=== PATIENT | female | born 1985 | race Caucasian/White ===

== ENCOUNTER → 2016-12-10 | Outpatient (CLI) | payer OTHER ==
[~2016-12-10] MED LIST: IBUP-1773 PO; PNV11TAB PO
--- NOTE | 2016-12-10 11:31 | Diagnostic Imaging Report ---
First trimester OB ultrasound. INDICATION: Dating. FINDINGS: There is a normal-appearing single intrauterine . An embryo is seen with cardiac activity at 163 beats per minute. The crown-rump length is at 11 weeks and 2 days. CORTES is 06/29/17. The ovaries are obscured by bowel gas. IMPRESSION: Live single intrauterine . Dictated by: Dictated on workstation # [id number]
== END ==
LOC: RAD 10:15
PROVIDERS: ATTEND Family Medicine
DX: Z34.91 Encounter for supervision of normal pregnancy, unspecified, first trimester (principal)
CPT/HCPCS: 76801

== ENCOUNTER → 2017-02-11 | Outpatient (CLI) | payer OTHER ==
--- NOTE | 2017-02-11 14:21 | Diagnostic Imaging Report ---
INDICATION: survey. TECHNIQUE: Multiple real-time grayscale images were obtained over the gravid uterus. COMPARISON: None. FINDINGS: Single live intrauterine fetus transverse with head to the maternal right. Amniotic fluid index is normal. Placenta is anterior and not low. heart rate of 136 beats per minute. There is a three-vessel cord. anatomical survey appears normal with the exception of incomplete visualization of the cervical spine. Biometrical measurements are as follows: Biparietal 4.4 cm, age 19 weeks 3 days. Head circumference 16.9 cm, age 19 weeks 4 days. Abdominal circumference 13.8 cm, age 19 weeks 2 days. Femur length 3.1 cm, age 19 weeks 6 days. Sonographic estimate age: 19 weeks 4 days. Sonographic estimated date of delivery: 06/29/17. Estimated Weight: 294 gm (+/- 43 gm). LMP percentile: 11%. heart rate: 136 beats per minute. number: 1 of 1. IMPRESSION: 1. A 20 weeks 2 days live intrauterine by previous ultrasound with normal growth in the interim. Sonographic EDC of 06/29/2017. 2. survey was normal with the exception of the cervical spine not being well visualized. Dictated by: Dictated on workstation # [id number]
== END ==
LOC: RAD 12:21
PROVIDERS: ATTEND Family Medicine
DX: Z36 Encounter for antenatal screening of mother (principal); Z3A.19 19 weeks gestation of pregnancy
CPT/HCPCS: 76805

== ENCOUNTER 2017-06-23 06:00 | Inpatient (IN) | payer OTHER ==
[~2017-06-23] VITALS: Ht 165.1 cm; Wt 116.8 kg
[2017-06-23] VITALS (47 sets, daily range): BP systolic 103–145; BP diastolic 50–82
[2017-06-23] MEDS ORDERED: D5 LR IV SOLUTION 1,000 ML IV SCH (06:14)
--- OUTSIDE RECORDS SUMMARY | 2017-06-23 06:15 | XMS REPORT | Continuity of Care Document ---
Author Author [facility] Address Unknown Phone Unavailable Allergies Active Description Code Type Severity Reaction Onset Reported/Identified Relationship to Patient Clinical Status Yes No Known Drug Allergies [id number] Drug Allergy Unknown N/ A 04/18/2008 Medications Problems Date Dx Coded Attending Type Code Diagnosis Diagnosed By 06/22/2013 CONRAD SANON DO V04.81 FLU SHOT 04/16/2015 NHAN COHEN MD, Ot V28.81 06/06/2015 NHAN COHEN MD, Ot Z36 07/10/2015 NHAN COHEN MD, Ot Z34.80 10/10/2015 NHAN COHEN MD, Ot V28.81 10/10/2015 NHAN COHEN MD, Ot Z36 10/10/2015 NHAN COHEN MD, Ot Z34.80 10/12/2015 NHAN COHEN MD, Ot D64.9 ANEMIA, UNSPECIFIED 10/12/2015 NHAN COHEN MD, Ot O90.81 ANEMIA OF THE PUERPERIUM 10/12/2015 NHAN COHEN MD, Ot O99.824 STREPTOCOCCUS B CARRIER STATE COMPLICATI 10/12/2015 NHAN COHEN MD Ot Z23 ENCOUNTER FOR IMMUNIZATION 10/12/2015 NHAN COHEN MD Ot Z37.0 SINGLE LIVE 10/12/2015 NHAN COHEN MD, Ot Z3A.39 39 WEEKS GESTATION OF 12/10/2016 NHAN COHEN MD, Ot V28.81 ENCOUNTER FOR ANATOMIC SURVEY 12/10/2016 NHAN COHEN MD, Ot Z36 ENCOUNTER FOR SCREENING OF MOT 12/10/2016 NHAN COHEN MD, Ot Z34.80 ENCOUNTER FOR SUPRVSN OF NORMAL PREGNANC 12/10/2016 NHAN COHEN MD, Ot V28.81 ENCOUNTER FOR ANATOMIC SURVEY 12/10/2016 NHAN COHEN MD, Ot Z36 ENCOUNTER FOR SCREENING OF MOT 12/10/2016 NHAN COHEN MD Ot Z34.80 ENCOUNTER FOR SUPRVSN OF NORMAL PREGNANC 12/30/2016 NHAN COHEN MD Ot Z34.91 ENCNTR FOR SUPRVSN OF NORMAL PREG, UNSP, 02/04/2017 NHAN COHEN MD Ot V28.81 ENCOUNTER FOR ANATOMIC SURVEY 02/04/2017 NHAN COHEN MD Ot Z36 ENCOUNTER FOR SCREENING OF MOT 02/04/2017 NHNA COHEN MD, Ot Z34.80 ENCOUNTER FOR SUPRVSN OF NORMAL PREGNANC 02/04/2017 NHAN COHEN MD Ot Z34.91 ENCNTR FOR SUPRVSN OF NORMAL PREG, UNSP, 03/08/2017 NHAN COHEN MD Ot Z36 ENCOUNTER FOR SCREENING OF MOT 03/08/2017 NHAN COHEN MD, Ot Z3A.19 19 WEEKS GESTATION OF Procedures Code Description Performed By Performed On [id number] DELIVERY OF PRODUCTS OF CONCEPTION, EXTE 10/10/2015 Results Encounters ACCT No. Visit Date/Time Discharge Status Pt. Type Provider Facility Loc./Unit Complaint [id number] 06/22/2013 09:32:00 06/22/2013 23: 59:59 CLS Outpatient FAB GAFFNEY CONRAD Cody [id number] 02/11/2017 12:21:00 2016 23:59:59 CLS Outpatient NHAN COHEN MD [facility] RAD SURVEY [id number] 12/10/2016 10:15:00 2016 23:59:59 CLS Outpatient NHAN COHEN MD [facility] RAD DATES [id number] 10/10/2015 13:10:00 2015 13:00:00 DIS Inpatient NHAN COHEN MD [facility] LDRP LABOR [id number] 06/11/2015 13:12:00 2014 23:59:59 CLS Outpatient NHAN COHEN MD [facility] RAD COMPLETE SURVEY, CHECK VENTRICLE [id number] 05/09/2015 09:35:00 2014 23:59:59 CLS Outpatient NHAN COHEN MD [facility] RAD SURVEY [id number] 03/11/2015 11:45:00 2014 23:59:59 CLS Outpatient NHAN COHEN MD [facility] RAD DATING [id number] 08/26/2013 18:57:00 2013 13:50:00 DIS Inpatient [id number] 04/13/2013 13:59:00 2012 23:59:59 CLS Outpatient [id number] 01/23/2013 15:03:00 2012 23:59:59 CLS Outpatient [id number] 06/23/2017 06:11:00 ACT Inpatient NHAN COHEN MD [facility] LDRP HX RAPID DELIVERY,PRE-ECLAMPSIA
--- OUTSIDE RECORDS SUMMARY | 2017-06-23 06:15 | XMS REPORT ---
Author NHAN [facility]cho[facility] e[employer] Address Unknown Phone Unavailable Care Team Providers Care Zoning Technician Name Role Phone NHAN COHEN CP Unavailable Allergies No Known Allergies Problems Problem Type Condition Code Onset Dates Condition Status Assessment Encounter for immunization Z23 Active Problem Need for prophylactic vaccination and inoculation, Influenza V04.81 Active Medications No Known Medications Procedures Procedure Coding System Code Date SINGLE IMMUNIZATION ADMIN CPT-4 91733 Jun 02, 2015 FLUARIX QUAD (3 & UP)-GSK-2014 CPT-4 03209 Jun 02, 2015 Results No Known Results Immunizations Vaccine Administration Date FLUARIX QUAD (3 & UP)-GSK-2014Jun 02, 2015 Summary Purpose eClinicalWorks Submission
--- OUTSIDE RECORDS SUMMARY | 2017-06-23 06:15 | XMS REPORT ---
Author CONRAD Canales [facility] e[employer] Address Unknown Phone Unavailable Care Team Providers Care Metal Stud Framer Name Role Phone CONRAD SANON CP Unavailable Allergies No Known Allergies Problems Problem Type Condition Code Onset Dates Condition Status Problem Need for prophylactic vaccination and inoculation, Influenza V04.81 Active Medications No Known Medications Results No Known Results Summary Purpose eClinicalWorks Submission
[2017-06-23 07:03] LABS: BILIRUBIN,URINE NEGATIVE (NEGATIVE); KETONES,URINE NEGATIVE (NEGATIVE); LEUKOCYTE ESTERASE ,URINE 3+ (NEGATIVE); NITRITE,URINE NEGATIVE (NEGATIVE); PH,URINE 7 (5-9); PROTEIN,URINE 1+ (NEGATIVE); UROBILINOGEN,URINE NORMAL (NORMAL)
[2017-06-23 07:08] LABS: BASOPHILS % (AUTO) 0 % (0-10); EOSINOPHILS # (AUTO) 0.3 10^3/uL (0.0-0.3); EOSINOPHILS % (AUTO) 2 % (0-10); LYMPHOCYTES # (AUTO) 1.9 X 10^3 (1.0-4.0); LYMPHOCYTES % (AUTO) 16 % (12-44); MEAN CORPUSCULAR HEMOGLOBIN 27 PG (25-34); MEAN CORPUSCULAR HGB CONC 34 G/DL (32-36); MEAN CORPUSCULAR VOLUME 81 FL (80-99); MEAN PLATELET VOLUME 10.8 FL (7.4-10.4); MONOCYTES # (AUTO) 0.9 X 10^3 (0.0-1.0); MONOCYTES % (AUTO) 8 % (0-12); NEUTROPHILS # (AUTO) 8.5 X 10^3 (1.8-7.8); NEUTROPHILS % (AUTO) 74 % (42-75); PLATELET COUNT 334 10^3/uL (130-400); RED CELL DISTRIBUTION WIDTH 15.6 % (10.0-14.5); WHITE BLOOD COUNT 11.5 10^3/uL (4.3-11.0)
[2017-06-23 07:14] LABS: SQUAMOUS EPITHELIAL CELL,UR >50 /HPF; WBC,URINE 50-100 /HPF
[2017-06-23] MEDS ORDERED: OXYTOCIN/NORMAL SALINE 500 ML IV SCH ×2 (07:20→14:39)
--- NOTE | 2017-06-23 07:20 | History & Physical-OB ---
OB - Chief Complaint & HPI Date/Time Date of Admission: Date of Admission: Jun 23, 2017 at 06:11 Time Seen by Provider: 07:05 Chief Complaint/History OB-Reason for Admission/Chief: Induction of Labor Hx : 5 Hx Para: 4 Expected Date of Delivery: Jun 29, 2017 Gestational Age in Weeks: 39 Gestational Age in Days: 1 History of Labs GBS negative Allergies and Home Medications Allergies Coded Allergies: No Known Drug Allergies (Verified Allergy, Unknown, 04/18/08) Home Medications Cxp710/Iron Fumarate/FA/Dss 1 Each Tablet, 1 EACH PO HS for 30 Days Prescribed by: VANDANA ALVARES on 08/26/132050 OB - History Hx of Present Care: Yes Ultrasounds: Normal mid trimester US Obstetrical Complications: None Medical Complications: None Obstetrical History Hx Termination: No Hx Multiple Gestation: No Hx Stillbirth: No Hx Complication: No Hx Induced Hypertens: No Hx Maternal Gestational Diabet: No Delivery History Hx Dystocia: No Hx Large For Gestational Age I: No Hx Small for Gestational Age I: No Hx Section: No Hx Vaginal Delivery Post C-Sec: No Hx Blood Disorders: No Patient Past Medical History No chronic medical problems Social History/Family History HIV/AIDS: No Recent Infectious Disease Expo: No Sexually Transmitted Disease: No Alcohol Use: Denies Use Recreational Drug Use: No Immunizations Hepatitis A: No Hepatitis B: No Tetanus Booster (TDap): Unknown Date of Influenza Vaccine: May 12, 2015 OB - Admission Exam Physical Exam Vitals: Vital Signs 06/23/17 06:22 Temp 96.9 Pulse 107 Resp 20 B/P (MAP) 129/71 HEENT: Moist Membranes Heart: Rhythm Normal Lungs: Clear Abdomen: Gravid Cervical Dilatation: 2cm Effacement: 50% Station: -3 Membranes: Intact Accelerations: Accelerations Present Short Term Variability: Present [place] Helper Variability: Average (6-25) Contractions on Admission: 6-10 Minutes Apart Intensity: Mild Bonds Scoring Tool (Modified) Dilation (cm): 1-2cm (1) Effacement (%): 31-51% (1) Descent/Station: -3 (0) Cervix Consistency: Soft (2) Cervix Position: Middle/Mid-Position (1) Add 1 point for: Each previous vaginal delivery (1) Bonds Score: 9 Labs Laboratory Tests Test 06/23/17 06:30 Range/Units White Blood Count 11.5 H 4.3-11.0 10^3/uL Red Blood Count 4.40 4.35-5.85 10^6/uL Hemoglobin 12.0 11.5-16.0 G/DL Hematocrit 36 35-52 % Mean Corpuscular Volume 81 80-99 FL Mean Corpuscular Hemoglobin 27 25-34 PG Mean Corpuscular Hemoglobin Concent 34 32-36 G/DL Red Cell Distribution Width 15.6 H 10.0-14.5 % Platelet Count 334 130-400 10^3/uL Mean Platelet Volume 10.8 H 7.4-10.4 FL Neutrophils (%) (Auto) 74 42-75 % Lymphocytes (%) (Auto) 16 12-44 % Monocytes (%) (Auto) 8 0-12 % Eosinophils (%) (Auto) 2 0-10 % Basophils (%) (Auto) 0 0-10 % Neutrophils # (Auto) 8.5 H 1.8-7.8 X 10^3 Lymphocytes # (Auto) 1.9 1.0-4.0 X 10^3 Monocytes # (Auto) 0.9 0.0-1.0 X 10^3 Eosinophils # (Auto) 0.3 0.0-0.3 10^3/uL Basophils # (Auto) 0.0 0.0-0.1 10^3/uL Urine Color YELLOW Urine Clarity CLEAR Urine pH 7 5-9 Urine Specific [place] 1.010 L 1.016-1.022 Urine Protein 1+ H NEGATIVE Urine Glucose (UA) NEGATIVE NEGATIVE Urine Ketones NEGATIVE NEGATIVE Urine Nitrite NEGATIVE NEGATIVE Urine Bilirubin NEGATIVE NEGATIVE Urine Urobilinogen NORMAL NORMAL MG/DL Urine Leukocyte Esterase 3+ H NEGATIVE Urine RBC (Auto) 1+ H NEGATIVE Urine RBC NONE /HPF Urine WBC 50-100 H /HPF Urine Squamous Epithelial Cells >50 H /HPF Urine Crystals NONE /LPF Urine Bacteria MODERATE H /HPF Urine Casts NONE /LPF Urine Mucus NEGATIVE /LPF Urine Culture Indicated YES OB - Assessment/Plan/Diagnosis Assessment Assessment: induction of labor (at 39w) Plan Plan: Induction Induction Method: NHAN KIRKLAND MD Jun 23, 2017 07:20
[2017-06-23] MEDS ORDERED: INFLUENZA TRIvalent 2017-2018 0.5 ML/45 MCG SYR IM ONE (08:00)
[2017-06-23] MEDS ORDERED: LACTATED RINGERS 1,000 ML IV ONE ×3 (09:22→10:55)
[2017-06-23] MEDS ORDERED: SUFENTA 0.6MCG/ML BUPIVA 0.125 100 ML ONE (09:29)
[2017-06-23] MEDS ORDERED: BUPIVACAINE 0.25% 30 ML (SENSORCAINE) VIAL ONE (10:18)
[2017-06-23] MEDS ORDERED: fentaNYL INJECTION 100 MCG/2 ML AMP ONE (10:18)
[2017-06-23] MEDS ORDERED: NALOXONE 0.4 MG/ML 1 ML (NARCAN) VIAL IV PRN (11:00)
[2017-06-23] MEDS ORDERED: EPIDURAL (SUFENTA 0.6MCG/ML BUPIVA 0.125%) 100 ML BAG EPI PRN (11:00)
[2017-06-23] MEDS ORDERED: ONDANSETRON 4 MG/2 ML (SDV) Z0FRAN IV PRN (11:00)
[2017-06-23] MEDS ORDERED: CATHETER FLUSH 10 ML SYR IV SCH ×2 (14:00→22:00)
--- NOTE | 2017-06-23 14:43 | OB Labor & Delivery Record ---
L&D History Date of Service Date of Service: Jun 23, 2017 History Expected Date of Delivery: Jun 29, 2017 Gestational Age in Weeks: 39 Hx : 5 Hx Para: 5 Complications Events: Routine care Operative Indications (Cesarea: N/A-Vaginal Delivery Intrapartal Events: None L&D Stage1 Stage One Onset of Labor - Date: Jun 23, 2017 Onset of Labor - Time: 07:00 Monitors and Tracing Monitor Mode: External Heart Rate: 130 Monitor Accelerations: Uniform Monitor Decelerations: None Station: -2 Attorney Law Clerk Variability: Average (6-10) Short Term Variability: Present Presentation: Vertex Vital Signs VS - Last 72 Hours, by Label 06/23/17 06/23/17 06/23/17 06/23/17 06:22 07:15 08:20 08:30 Temp 96.9 97.3 Pulse 107 103 90 88 Resp 20 18 18 18 B/P (MAP) 129/71 126/65 118/59 118/60 O2 Delivery Room Air Room Air Room Air 06/23/17 06/23/17 06/23/17 06/23/17 08:45 09:00 09:15 09:30 Temp 97.1 Pulse 87 79 88 89 Resp 18 18 18 18 B/P (MAP) 115/62 118/65 125/59 127/70 O2 Delivery Room Air Room Air Room Air Room Air 06/23/17 06/23/17 06/23/17 06/23/17 09:45 10:00 10:15 10:30 Temp 97.1 Pulse 84 78 80 96 Resp 18 18 18 18 B/P (MAP) 125/67 121/62 121/61 (81) 132/65 (87) O2 Delivery Room Air Room Air Room Air Room Air 06/23/17 06/23/17 06/23/17 06/23/17 10:35 10:40 10:45 10:50 Pulse 90 90 97 103 Resp 18 18 18 18 B/P (MAP) 142/72 (95) 131/61 (84) 129/67 (87) 116/71 (86) Pulse Ox 97 97 98 O2 Delivery Room Air Room Air Room Air Room Air 06/23/17 06/23/17 06/23/17 06/23/17 10:53 10:58 11:03 11:08 Pulse 88 85 86 83 Resp 18 18 18 18 B/P (MAP) 127/67 (87) 131/61 (84) 134/63 (86) 121/58 (79) Pulse Ox 97 97 99 96 O2 Delivery Room Air Room Air Room Air Room Air 06/23/17 06/23/17 06/23/17 06/23/17 11:13 11:16 11:19 11:21 Pulse 86 75 84 83 Resp 18 18 18 18 B/P (MAP) 120/82 (95) 118/55 (76) 141/60 (87) 133/60 (84) Pulse Ox 96 96 96 96 O2 Delivery Room Air Room Air Room Air Room Air 06/23/17 06/23/17 06/23/17 06/23/17 11:24 11:27 11:30 11:35 Pulse 75 83 86 92 Resp 18 18 18 18 B/P (MAP) 121/59 (79) 119/61 (80) 122/66 (84) 133/62 (85) Pulse Ox 96 96 96 98 O2 Delivery Room Air Room Air Room Air Room Air 06/23/17 06/23/17 06/23/17 06/23/17 11:40 11:50 12:00 12:05 Pulse 75 76 72 80 Resp 18 18 18 18 B/P (MAP) 126/60 (82) 129/58 (81) 107/55 (72) 126/61 (82) Pulse Ox 98 98 96 97 O2 Delivery Room Air Room Air Room Air Room Air 06/23/17 06/23/17 06/23/17 06/23/17 12:10 12:30 12:45 13:00 Temp 96.5 Pulse 81 86 77 84 Resp 18 18 18 18 B/P (MAP) 134/69 (90) 122/80 (94) 128/56 (80) 126/61 (82) Pulse Ox 98 99 99 99 O2 Delivery Room Air Room Air Room Air Room Air 06/23/17 06/23/17 06/23/17 13:15 13:30 13:45 Pulse 84 81 75 Resp 18 18 18 B/P (MAP) 126/61 (82) 121/64 (83) 131/57 (81) Pulse Ox 99 99 96 O2 Delivery Room Air Room Air Room Air Signs of Distress by FHT Signs of Distress no Rupture of Membranes Spontaneous Ruture of Membrane: No Amniotic Membrane Rupture Time: 0712 Amniotic Membrane Fluid Desc.: Clear Induction/Anesthesia Epidural Cath Placement - Time: 1038 L&D Stage2 Stage Two Stage II Date: Jun 23, 2017 Stage II Time: 14:20 Monitors and Tracing Monitor Mode: External Heart Rate: 130 Monitor Accelerations: Uniform Monitor Decelerations: None Jail Variability: Average (6-10) Position: Left Occiput Anterior Presentation: Vertex Signs of Distress by FHT Signs of Distress no Cord Descript/Complications Cord Vessel Description: 3 Vessels Delivery Type Infant Delivery Method: Spontaneous Vaginal Anterior Shoulder: Left Episiotomy/Perineal Laceration Laceraction(s)/Extensions: No Condition of Delivery 1 minute Comment: 8 5 minute Comment: 9 Condition of Condition of Infant: Living Exam: No Observed Abnormalities Resuscitation Resuscitation: N/A - Spontaneous Resp L&D Stage3 Stage Three Stage III Date: Jun 23, 2017 Stage III Time: 14:25 Pictocin Pitocin Administration mu/min: 26 Pitocin ml/hr: 26 Placenta Delivery Placenta Delivery: Spontaneous Delivery Summary Summary Estimated blood loss (mL): 150 Condition of Delivery Examined: Cervix Examined Post Hemorrhage: No NHAN COHEN MD Jun 23, 2017 14:42
[2017-06-23] MEDS ORDERED: WITCH HAZEL(TUCKS) 40 EA JAR TOP PRN (14:45)
[2017-06-23] MEDS ORDERED: HYDROcodone/APAP 5 MG/325 MG (LORTAB) TAB PO PRN (14:45)
[2017-06-23] MEDS ORDERED: MEASLES,MUMPS,RUBELLA 1 EA INJ SQ ONE (14:45)
[2017-06-23] MEDS ORDERED: TETANUS,DIPTH,PERTUSS P/F (BOOSTRIX) 0.5 ML VIAL IM ONE (14:45)
[2017-06-23] MEDS ORDERED: BENZOCAINE/MENTHOL (DERMOPLAST) 56 ML CAN TP PRN (14:45)
[2017-06-23] MEDS: IBUPROFEN 600 MG (MOTRIN) TAB PO SCH ×2 (17:43→23:44)
[2017-06-24] VITALS: BP 94/48
[2017-06-24 04:20] VITALS: BP 99/57
[2017-06-24 05:30] LABS: BASOPHILS % (AUTO) 0 % (0-10); EOSINOPHILS # (AUTO) 0.4 10^3/uL (0.0-0.3); EOSINOPHILS % (AUTO) 3 % (0-10); LYMPHOCYTES # (AUTO) 2.1 X 10^3 (1.0-4.0); LYMPHOCYTES % (AUTO) 18 % (12-44); MEAN CORPUSCULAR HEMOGLOBIN 28 PG (25-34); MEAN CORPUSCULAR HGB CONC 34 G/DL (32-36); MEAN CORPUSCULAR VOLUME 83 FL (80-99); MEAN PLATELET VOLUME 10.5 FL (7.4-10.4); MONOCYTES % (AUTO) 9 % (0-12); NEUTROPHILS # (AUTO) 7.8 X 10^3 (1.8-7.8); NEUTROPHILS % (AUTO) 69 % (42-75); PLATELET COUNT 286 10^3/uL (130-400); RED BLOOD COUNT 3.91 10^6/uL (4.35-5.85); RED CELL DISTRIBUTION WIDTH 15.7 % (10.0-14.5); WHITE BLOOD COUNT 11.4 10^3/uL (4.3-11.0)
[2017-06-24] MEDS: IBUPROFEN 600 MG (MOTRIN) TAB PO SCH ×2 (06:02→12:12)
[2017-06-24] MEDS ORDERED: PRENATAL VITAMIN 1 EA TAB PO SCH (07:00)
--- NOTE | 2017-06-24 07:28 | Discharge Summary ---
Diagnosis/Chief Complaint Date of Admission Jun 23, 2017 at 06:11 Date of Discharge June 24, 2017 Discharge Date: Jun 24, 2017 Discharge Time: 16:00 Admission Diagnosis Admission Diagnosis 1. Intrauterine at term 39 weeks Discharge Diagnosis 1. Intrauterine at term 39 weeks Reason Hospital Visit 32-year-old 5 now term 5 female who initially presented to labor and delivery during the morning of June 23, 2017 for induction of labor. She is noted to be at 39 weeks 1 day gestation upon presentation. Patient's due date is noted to be June 29, 2017. She had an occasional contraction on admission. She was dilated to 2 cm upon presentation. Her care was essentially unremarkable. Discharge Summary-OBS Procedures 1. Epidural per anesthesia 2. Spontaneous vaginal delivery Discharge Physical Examination Allergies: Coded Allergies: No Known Drug Allergies (Verified Allergy, Unknown, 04/18/08) Vitals & I&Os Vital Signs Date Time Temp Pulse Resp B/P (MAP) Pulse Ox O2 Delivery O2 Flow Rate FiO2 06/24/17 04:20 98.4 76 18 99/57 (71) 98 Room Air General Appearance: No Acute Distress Respiratory: Clear to Auscultation Cardiovascular: Regular Rate Abdominal: Soft (with uterus firm) Hospital Course after presentation patient underwent amniotomy with placement of scalp electrode. Fluid was noted to be clear. She did have contraction pattern but ultimately required Pitocin augmentation. She requested epidural and did receive this with good results. She continued to contract with reactive strip. Ultimately she went on to completion and delivered over an intact perineum a term viable female. received Apgars of 8 at 1 minute and 9 at 5 minutes. Following delivery patient underwent routine care orders. She had no complications during the remainder of hospital stay. She was ambulatory and without any shortness of breath or leg pain. She tolerated regular diet. Her hemoglobin the day after delivery was 10.9. She was felt ready for dismissal during the afternoon of June 24, 2017. All questions answered. Pending Labs Laboratory Tests 06/24/17 05:23: White Blood Count 11.4, Red Blood Count 3.91, Hemoglobin 10.9, Hematocrit 32, Mean Corpuscular Volume 83, Mean Corpuscular Hemoglobin 28, Mean Corpuscular Hemoglobin Concent 34, Red Cell Distribution Width 15.7, Platelet Count 286, Mean Platelet Volume 10.5, Neutrophils (%) (Auto) 69, Lymphocytes (%) (Auto) 18 , Monocytes (%) (Auto) 9, Eosinophils (%) (Auto) 3, Basophils (%) (Auto) 0, Neutrophils # (Auto) 7.8, Lymphocytes # (Auto) 2.1, Monocytes # (Auto) 1.0, Eosinophils # (Auto) 0.4, Basophils # (Auto) 0.0 Discharge Instructions to patient/family Please see electronic discharge instructions given to patient. Discharge Medications Reviewed and agree with Discharge Medication list on patient's Discharge Instruction sheet Clinical Quality Measures DVT/VTE Risk/Contraindication: Risk Factor Score Per Nursin RFS Level Per Nursing on Admit: 2=Moderate NHAN COHEN MD Jun 24, 2017 07:28
--- NOTE | 2017-06-24 07:31 | Discharge Inst-Women's Service ---
Discharge Inst-Women's Serv Depart Medication/Instructions New, Converted or Re-Newed RX: Other Instructions [id number]-lsl-[id number] ibuprofen 2 or 3 tablets every 4-6 hours as needed for cramping. Consults/Follow Up Additional Follow Up: Yes (with Dr Brown in 6 weeks) Activity Activity: Activity as Tolerated Driving Instructions: You May Drive Nothing Inside Vagina: No [place] (for 6 weeks) Diet Discharge Diet: Regular Diet Return to The Hospital For: as below Symptoms to Report to : Bleeding Excessive, Pain Increased, Fever Over 101 Degrees F, Vaginal Discharge NHAN Sandoval MD Jun 24, 2017 07:31
[2017-06-24 09:00] VITALS: BP 114/65
[2017-06-24] MEDS ORDERED: INFLUENZA TRIvalent 2017-2018 0.5 ML/45 MCG SYR IM ONE (10:19)
[2017-06-24] MEDS ORDERED: TETANUS,DIPTH,PERTUSS P/F (BOOSTRIX) 0.5 ML VIAL IM ONE (10:19)
--- NOTE | 2017-06-24 10:26 | Anesthesia-Regional Post-Op ---
Regional Patient Condition Mental Status: Alert, Oriented x3 Circulation: Same as Pre-Op Headache: Absent Sensation: Full Recovery Motor Block: Absent Post Op Complications Complications None Follow Up Care/Instructions Patient Instructions None needed. Anesthesia/Patient Condition Patient is doing well, no complaints, stable vital signs, no apparent adverse anesthesia problems. No complications reported per nursing. NEELIMA MONTAÑO CRNA Jun 24, 2017 10:26
[2017-06-24 14:15] VITALS: BP 117/69
[2017-06-24 16:52] VITALS: BP 117/69
== END 2017-06-24 16:52 | disposition home or self-care (01) | DRG 775 ==
LOC: LDRP 06:11
PROVIDERS: ADMIT Family Medicine; ATTEND Family Medicine
PROC: 10E0XZZ Delivery of Products of Conception, External Approach (ICD-10-PCS; principal; 2017-06-23)
PROC: 10907ZC Drainage of Amniotic Fluid, Therapeutic from Products of Conception, Via Natural or Artificial Opening (ICD-10-PCS; 2017-06-23)
DX: O80 Encounter for full-term uncomplicated delivery (principal); Z37.0 Single live birth; Z3A.39 39 weeks gestation of pregnancy; Z23 Encounter for immunization
CPT/HCPCS: 36415; 81000; 85025; 86850; 86900; 86901; 87088; 90715

== ENCOUNTER → 2018-06-30 | Outpatient (CLI) | payer OTHER ==
--- NOTE | 2018-06-30 14:00 | Diagnostic Imaging Report ---
PROCEDURE: US Non-ob pelvis comp/trans. TECHNIQUE: Multiple realtime grayscale images were obtained of the pelvis in various projections endovaginally. Transabdominal imaging was also performed. INDICATION: Left adnexal cyst. Uterus measures 6.8 x 4.4 x 4.0 cm. Endometrium is 5 mm in thickness. No myometrial mass is detected. The ovaries cannot be visualized on today's study. No adnexal mass or free fluid is detected. IMPRESSION: Nonvisualized ovaries. No abnormality is detected. Dictated by: Dictated on workstation # [id number]
== END ==
LOC: RAD 12:28
PROVIDERS: ATTEND Family Medicine
DX: N83.8 Other noninflammatory disorders of ovary, fallopian tube and broad ligament (principal)
CPT/HCPCS: 76830; 76856

== ENCOUNTER → 2018-07-31 | Outpatient (CLI) | payer OTHER ==
[~2018-07-31] MED LIST changes: +IOHEXOL 350 MG/ML 100 ML (OMNIPAQUE 350) VIAL IV ONE; +NS 100 ML (IVPB) BAG IV ONE; +RECEIVED CONTRAST (Hold Metformin) IV SCH
--- NOTE | 2018-07-31 09:44 | Diagnostic Imaging Report ---
INDICATION: History of left adnexal cyst, nonvisualized ovaries on recent ultrasound. TECHNIQUE: CT of the abdomen and pelvis obtained with IV contrast. COMPARISON: There is no previous CT for comparison. FINDINGS: Visualized portions of the lung bases are clear. There are no pleural fluid collections. There is no free intraperitoneal air. The liver and gallbladder appear unremarkable. The spleen, adrenals, and pancreas appear normal. The kidneys bilaterally appear unremarkable. There is no retroperitoneal mass or adenopathy. The appendix appears normal. There is no ascites or abnormal fluid collection. Visualized bowel loops appear unremarkable. In the pelvis, the uterus shows no focal lesion. There is a large left adnexal lesion which contains predominantly fat and some areas of calcium and soft tissue, likely representing a dermoid. This measures about 8.3 x 8.5 cm. There is no overt right adnexal lesion. IMPRESSION: There is a large left adnexal lesion measuring 8.3 x 8.5 cm as above, which contains predominantly fatty elements but some areas of calcification and soft tissue density. This most likely represents a large dermoid. There is no other significant abnormality. Dictated by: Dictated on workstation # [id number]
== END ==
LOC: RAD 07:54
PROVIDERS: ATTEND Family Medicine
DX: R19.07 Generalized intra-abdominal and pelvic swelling, mass and lump (principal)
CPT/HCPCS: 74177

== ENCOUNTER 2018-09-14 10:56 | Outpatient (CLI) | payer OTHER ==
[~2018-09-14] VITALS: Ht 165.1 cm; Wt 114.1 kg
[~2018-09-14 10:56] MED LIST changes: -IOHEXOL 350 MG/ML 100 ML (OMNIPAQUE 350) VIAL IV ONE; -NS 100 ML (IVPB) BAG IV ONE; -RECEIVED CONTRAST (Hold Metformin) IV SCH
[2018-09-14 11:15] VITALS: BP 138/85
[2018-09-14 11:47] LABS: BASOPHILS # (AUTO) 0.1 10^3/uL (0.0-0.1); BASOPHILS % (AUTO) 1 % (0-10); EOSINOPHILS # (AUTO) 0.5 10^3/uL (0.0-0.3); EOSINOPHILS % (AUTO) 6 % (0-10); HEMATOCRIT 40 % (35-52); HEMOGLOBIN 12.9 G/DL (11.5-16.0); LYMPHOCYTES % (AUTO) 24 % (12-44); MEAN CORPUSCULAR HEMOGLOBIN 25 PG (25-34); MEAN CORPUSCULAR HGB CONC 32 G/DL (32-36); MEAN CORPUSCULAR VOLUME 77 FL (80-99); MONOCYTES # (AUTO) 0.7 X 10^3 (0.0-1.0); MONOCYTES % (AUTO) 8 % (0-12); NEUTROPHILS # (AUTO) 5.1 X 10^3 (1.8-7.8); NEUTROPHILS % (AUTO) 61 % (42-75); PLATELET COUNT 385 10^3/uL (130-400); RED CELL DISTRIBUTION WIDTH 16.2 % (10.0-14.5); WHITE BLOOD COUNT 8.3 10^3/uL (4.3-11.0)
== END 2018-09-14 12:33 ==
LOC: PREOP 10:56
PROVIDERS: ATTEND Obstetrics & Gynecology
DX: Z01.812 Encounter for preprocedural laboratory examination (principal); N93.9 Abnormal uterine and vaginal bleeding, unspecified
CPT/HCPCS: 36415; 85025; 86850; 86900; 86901; 87081

== ENCOUNTER 2018-09-21 06:10 | Day surgery (SDC) | payer OTHER ==
[~2018-09-21] VITALS: Ht 165.1 cm; Wt 114.1 kg
[2018-09-21] MEDS ORDERED: LACTATED RINGERS 1,000 ML IV SCH (06:17)
[2018-09-21] MEDS ORDERED: LACTATED RINGERS 1,000 ML IV PRN (06:17)
[2018-09-21 06:30] VITALS: BP 116/66
[2018-09-21] MEDS ORDERED: metroNIDAZOLE 500MG/100ML IVPB 100 ML IV ONE (06:30)
[2018-09-21] MEDS ORDERED: ceFAZolin 2 GM IV Premixed 50 ML IV ONE (06:30)
[2018-09-21] MEDS ORDERED: BUPIVACAINE 0.25% 30 ML (SENSORCAINE) VIAL ONE (06:36)
[2018-09-21] MEDS ORDERED: BUP/EPI 0.5% 1:200,000 (SENSORCAINE) 30 ML VIAL ONE (06:36)
[2018-09-21] MEDS ORDERED: CATHETER FLUSH 10 ML SYR IV PRN (06:45)
[2018-09-21] MEDS ORDERED: LIDOCAINE PF 2% 5 ML (XYLOCAINE) VIAL ONE (06:55)
[2018-09-21] MEDS ORDERED: ONDANSETRON 4 MG/2 ML (SDV) Z0FRAN ONE (06:55)
[2018-09-21] MEDS ORDERED: proPOfol 200 MG/20 ML (DIPRIVAN) VIAL IV ONE (06:55)
[2018-09-21] MEDS ORDERED: ROCURONIUM 10 MG/ML 5 ML SYRINGE IV ONE ×2 (06:55→08:05)
[2018-09-21] MEDS ORDERED: MIDAZOLAM 2 MG/2 ML (VERSED) VIAL ONE (06:56)
[2018-09-21] MEDS ORDERED: fentaNYL INJECTION 100 MCG/2 ML AMP ONE ×3 (06:56→09:14)
--- NOTE | 2018-09-21 07:04 | Progress Note-Pre Operative ---
Pre-Operative Progress Note H&P Reviewed The H&P was reviewed, patient examined and no changes noted. Date Seen by Provider: Sep 21, 2018 Time Seen by Provider: 07:00 Date H&P Reviewed: Sep 21, 2018 Time H&P Reviewed: 07:00 Pre-Operative Diagnosis: Solid pelvic mass, AUB, BMI 41 ALOK RAMON DO Sep 21, 2018 07:04
[2018-09-21] MEDS ORDERED: DEXAMETHASONE 10 MG/ML (DECADRON) 1 ML VIAL ONE (07:07)
[2018-09-21] MEDS ORDERED: SEVOFLURANE (ULTANE) 15 ML INHAL SOLN ONE ×9 (07:07→09:17)
[2018-09-21] MEDS ORDERED: SIMETHICONE 80 MG (MYLICON) CHEW PO PRN (07:15)
[2018-09-21] MEDS ORDERED: CHLORASEPTIC LOZENGE MM PRN (07:15)
[2018-09-21] MEDS ORDERED: ONDANSETRON 4 MG/2 ML (SDV) Z0FRAN IV PRN (07:15)
[2018-09-21] MEDS ORDERED: ZOLPIDEM 5 MG (AMBIEN) TAB PO PRN (07:15)
[2018-09-21] MEDS ORDERED: DOCUSATE SODIUM 100 MG (COLACE) CAP PO PRN (07:15)
[2018-09-21] MEDS ORDERED: HYDROcodone/APAP 7.5 MG/325 MG (LORTAB, LORCET PLUS) TABLET PO PRN (07:15)
[2018-09-21] MEDS ORDERED: ANTACID SUSP 30 ML UDC (MYLANTA) PO PRN (07:15)
--- NOTE | 2018-09-21 07:17 | Discharge Inst-Women's Service ---
Discharge Inst-Women's Serv Depart Medication/Instructions New, Converted or Re-Newed RX: RX on Chart Consults/Follow Up Additional Follow Up: Yes Orders/Referrals Dr. Montes De Oca in 7-10 days and in 8 weeks Activity Activity: Activity as Tolerated Driving Instructions: No Driving for 1 Week NO SMOKING: NO SMOKING Nothing Inside Vagina: No Douching, No [place], No Tampons Diet Discharge Diet: No Restrictions Symptoms to Report to : Bleeding Excessive, Pain Increased, Fever Over 101 Degrees F, Vaginal Bleeding Increase, Questions/Concerns For Any Problems or Questions: Contact Your Physician Skin/Wound Care Infection Signs and Symptoms: Increased Redness, Foul Odor of Wound, Increased Drainage, Skin Itchy or Has a Rash, Increased Swelling, Temperature Above 101 F Stitches/Susi/Dermabond: Dermabond, Care of Stitches Bathing Instructions: ALOK Hitchcock DO Sep 21, 2018 07:17
[2018-09-21] MEDS ORDERED: IBUP-844 PO (07:20)
[2018-09-21] MEDS ORDERED: DOCU100C37 PO (07:20)
[2018-09-21] MEDS ORDERED: SIME80TA16 PO (07:20)
[2018-09-21] MEDS ORDERED: HYDR-34 PO (07:20)
[2018-09-21] MEDS: LACTATED RINGERS 1,000 ML IV SCH ×2 (08:21→11:56)
[2018-09-21] MEDS ORDERED: GLYCOPYRROLATE 0.2 MG/ML (ROBINUL) 2 ML VIAL ONE (09:11)
[2018-09-21] MEDS ORDERED: NEOSTIGMINE 1 MG/ML 5 ML SYRINGE ONE (09:11)
[2018-09-21] MEDS ORDERED: ONDANSETRON 4 MG/2 ML (SDV) Z0FRAN IVP PRN (09:45)
[2018-09-21] MEDS ORDERED: HYDROmorphone 2 MG/ML VIAL (DILAUDID) IV ONE (09:45)
[2018-09-21] MEDS ORDERED: KETOROLAC 30 MG/ML VIAL ONE (09:53)
[2018-09-21] MEDS ORDERED: HYDROmorphone 2 MG/ML VIAL (DILAUDID) ONE (09:53)
[2018-09-21] MEDS: KETOROLAC 30 MG/ML VIAL IV PRN ×3 (09:56→22:15)
[2018-09-21 10:30] VITALS: BP 126/60
--- NOTE | 2018-09-21 10:30 | NUR ---
THAO VELAZQUEZ presented to unit via BED from RECOVERY, accompanied by Cody WALLS, RN AND Anuradha DUONG, RN AFTER HAVING A ROBOTIC TOTAL LAP HYST. VS taken. REPORT RECEIVED. FAMILY AT THE BEDSIDE. CALL LIGHT WITHIN REACH.
[2018-09-21] MEDS ORDERED: FLU QUADRIvalent (5+ YOA) 2018-2019 (AFLURIA) 0.5 ML IM ONE (11:45)
[2018-09-21 12:38] VITALS: BP 113/59
--- NOTE | 2018-09-21 13:05 | NUR ---
THIS RN TO ROOM, SP02 NOTED TO BE 80%. 02 REAPPLIED AT 1 L/MIN, SP02 INCREASED TO 97%.
--- NOTE | 2018-09-21 13:30 | OPERATIVE REPORT ---
DATE OF SERVICE: PREOPERATIVE DIAGNOSES: A 33-year-old female with: 1. Abnormal uterine bleeding. 2. Large ovarian solid mass. POSTOPERATIVE DIAGNOSES: A 33-year-old female with: 1. Abnormal uterine bleeding. 2. Large ovarian solid mass. PROCEDURES: Robotic-assisted total laparoscopic hysterectomy with bilateral salpingectomy and left oophorectomy including removal of ovarian mass. SURGEON: Christofer Ramon DO. CERTIFIED MEDICAL TECHNICIAN: Hyun Gray, nurse practitioner student. ESTIMATED BLOOD LOSS: 150 mL. URINE OUTPUT: 400 mL of clear urine. FLUIDS: 1200 mL of lactated Ringer solution. FINDINGS: A grossly normal appearing uterus, bilateral fallopian tubes with evidence of previous tubal ligation. A grossly enlarged left ovary approximately 8 x 9 x 8 cm in diameter. Grossly normal appearing right ovary. SPECIMEN SENT: Uterus, bilateral tubes and left ovary including pelvic mass. 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 The patient was having discomfort and pelvic pressure by the time she was admitted to my office. I discussed with the patient removal of this ovary only; however, she did describe a history of heavy periods as well as had risk factors including morbid obesity and a remote family history of endometrial cancer. I talked about performing a hysterectomy at the time of removal, allowing us to remove this minimally invasively through the vaginal cuff. Risks of this procedure were discussed with the patient in detail including risk of bleeding, infection, damage to surrounding structures including, but not limited to bowel, bladder, ureter, kidneys, possible need for postoperative reoperation, complications that could occur postoperatively, postoperative restrictions, recovery timeframe and risk of even and anesthesia were discussed with the patient. After everything was discussed and all of her questions were answered, consent was obtained in the preoperative area and the patient was taken to the operating room. OPERATIVE REPORT IN DETAIL: Once in the operating room, general anesthesia was found to be adequate. She was placed in dorsal lithotomy position, prepped and draped in normal sterile fashion. A timeout was performed. A Garcia catheter was placed using a sterile technique. A weighted speculum was inserted in the patient's vagina. A right angle retractor was used to visualize the cervix, which was grasped at 12 o'clock position using a long Allis clamp and 0 Vicryl suture was then placed in the anterior lip of the cervix and the Allis clamp was removed. We then used that suture as my retraction point. An 8 cm Avelina uterine manipulator tip and a 4 cm colpotomy ring was placed and the tip goes into the endometrial cavity and the colpotomy ring goes around the vaginal fornix. Once this was in place, I am able to appreciate excellent manipulation on bimanual examination. I then performed a change of gloves. I then turned my attention to the abdomen where infraumbilically I infiltrated it using 0.25% Marcaine. I made an 8 mm incision and directed the Veress needle through the incision until intraperitoneal placement was confirmed using saline drop test; however, with insufflation, I was unable to achieve an adequate pressure for intraperitoneal placement. Therefore, I placed a stab wound in the left upper quadrant midclavicular subcostal. Once this incision was made, I directed the Veress needle placed through this incision until intraperitoneal placement was confirmed using a saline drop test. An opening pressure of 5 mmHg was noted at this point, which was much better than my previous insertion spot. I insufflated using CO2 gas to a maximum pressure of 15 mmHg, at which point I removed the Veress needle and introduced the 8 mm blunt da Christina camera trocar through the infraumbilical trocar site. Once this was in place, I briefly scanned my Veress needle site in the left upper quadrant, which showed no evidence of bleeding or damage upon that entry site. I then grossly scanned the upper abdominal anatomy, which appears normal on gross inspection. I then had the patient placed in steep Trendelenburg and I am able to visualize all my pelvic findings as described above. Due to the size of the ovary and with Trendelenburg the ovary came out of the pelvis into the upper abdomen, I was able to perform the dissection on the uterus a little bit easier. I started by performing the following dissection bilaterally starting in the uteroovarian ligament, I bipolar cauterized and transected using the vessel sealer. I then took my dissection up to the round ligament, bipolar cauterized and transected it using a vessel sealer. I then amputated the fallopian tube remnant by using monopolar winston down the mesosalpinx. Once the fallopian tubes were taken down, I was able to grasp the entire broad ligament, bipolar cauterize it and transected it using the vessel sealer. I took the anterior leaflet dissection into the anterior vaginal fornix. The posterior leaflet was taken around the posterior vaginal fornix, which allowed me to skeletonize the uterine vessels bilaterally. I then bipolar cauterized and transected using the vessel sealer. I then created a colpotomy at the 12 o'clock position using monopolar winston and took this circumferentially around the vaginal fornix amputating the cervix away from the vagina. The entire specimen including the fallopian tubes was then removed through the vagina leaving the pelvic mass attached to the infundibulopelvic ligament. I then took my attention to this, I bipolar cauterized across the infundibulopelvic ligament with care taken to avoid the ureters identified during my dissection plane. Once the IP was transected, I handed off the large ovary through the vaginal cuff using an Allis clamp. Once it was brought into the vagina, it did not clear the vaginal cuff due to its size. I then scrubbed back into the case and approached this vaginally where I brought the vast majority of the cystic mass with gentle tension into the vagina at which point I incised it using the 11 blade and introduced suction into the cyst itself. This decompressed the cyst and allowed me to remove it vaginally. There was little to no spillage noted of the cystic contents. Once this was out vaginally, I then took my place back at the da Christina operative console and proceeded with closing the vaginal cuff using 2-0 Vicryl suture in a [id number]-[id number] fashion in the lateral vaginal apices, colposuspending them to the uterosacral ligaments. I then closed the remainder of the vaginal cuff using 2-0 V-Loc in a running fashion, after which there was no active bleeding noted from any of my dissection planes. I then undocked the da Christina robot and proceeded with the remainder of the case laparoscopically after scrubbing back into the case. I then copiously irrigated the pelvis using normal saline. There was no active bleeding noted from any of my dissection planes. I placed Surgiflo hemostatic agent over all my planes of dissection. Once again, there was no active bleeding noted from any of my dissection planes. The lateral trocars, which I placed earlier, but did not mention in my dictation, these were both 8 mm trocars approximately 8 cm lateral to my infraumbilical trocar. These were both removed under direct visualization of the laparoscope after the laparoscopic portion of this was completed. I then left the infraumbilical trocar in place both to release insufflation and introduced 10 mL of 0.25% Marcaine for postoperative pain management into the peritoneal cavity. I then removed this trocar site as well. The skin was then reapproximated using 4-0 Monocryl interrupted subcuticular stitches. Dermabond was applied to the incision and Band-Aids were placed over the incisions. Garcia catheter was left in place. The patient tolerated the procedure well and sent to recovery area in stable condition. Lap and sponge count was correct at the end of the procedure. Instrument count was correct as well. Two grams of Ancef and 500 mg of Flagyl were given preoperatively for infection prophylaxis. Job ID: [id number] DocumentID: [id number] Dictated Date: 09/21/2018 10:47:10 Sinker Winder Date: 09/21/2018 13:28:56 Dictated By: CHRISTOFER RAMON DO
--- NOTE | 2018-09-21 13:35 | NUR ---
02 REMOVED. HAND HELD SP02 APPLIED TO PT. SP02 CURRENTLY RUNNING 93-94%. WILL CONTINUE TO MONITOR.
--- NOTE | 2018-09-21 13:40 | NUR ---
PT RESTING UPON THIS RN ENTERING ROOM. FCO GILLIAM. PAD AND PANTIES IN PLACE. SCDS RECONNECTED. FAMILY TO BEDSIDE. PT DENIES ANY NEEDS AT THIS TIME. CALL LIGHT WITHIN REACH.
--- NOTE | 2018-09-21 15:20 | NUR ---
SP02 RUNNING 95-96%. PT VOICES THE NEED TO GET UP TO THE BATHROOM. STAND BY ASSIST PROVIDED. + VOID, + PERICARE PER PT. PT TO CHAIR. FAMILY AT THE BEDSIDE. CALL LIGHT WITHIN REACH.
--- NOTE | 2018-09-21 15:42 | NUR ---
RT TO PT'S BEDSIDE TO INITIATE INCENTIVE SPIROMETRY.
[2018-09-21 15:56] VITALS: BP 100/53
--- NOTE | 2018-09-21 16:00 | NUR ---
PT REMAINS SITTING UP IN THE CHAIR, FAMILY AT THE BEDSIDE. VS OBTAINED. ROUTINE TORADOL GIVEN IVP; SEE EMAR FOR FURTHER. PT DENIES ANY NEEDS AT THIS TIME. CALL LIGHT WITHIN REACH.
--- NOTE | 2018-09-21 17:16 | NUR ---
PT IN BED. DR. RAMON TO PT'S BEDSIDE, POC DISCUSSED. IV FLUIDS STOPPED, SALINE LOCKED AT THIS TIME. PT DENIES ANY NEEDS AT THIS TIME.
--- NOTE | 2018-09-21 18:30 | NUR ---
PT UP IN THE ROOM, PREPPING TO GO TO THE BATHROOM AGAIN. NO NEEDS VOICED. FRESH ICE WATER PROVIDED.
[2018-09-21 22:13] VITALS: BP 102/52
[2018-09-22] MEDS ORDERED: IBUPROFEN 600 MG (MOTRIN) TAB PO PRN
[2018-09-22 04:20] VITALS: BP 95/64
[2018-09-22 07:40] VITALS: BP 108/53
--- NOTE | 2018-09-22 07:40 | NUR ---
THIS RN TO BEDSIDE, PT IN BED, WATCHING TV. VS OBTAINED. INITIAL SHIFT ASSESSMENT COMPLETED; SEE INTERVENTION FOR FURTHER. SCDS OFF AT THIS TIME.
--- NOTE | 2018-09-22 07:45 | NUR ---
DR. RAMON TO PT'S BEDSIDE, DISCHARGE DISCUSSED. PT DENIES ANY QUESTIONS AT THIS TIME.
--- NOTE | 2018-09-22 07:47 | Anesthesia-General Post-Op ---
General Patient Condition Mental Status/LOC: Same as Preop Cardiovascular: Satisfactory Nausea/Vomiting: Absent Respiratory: Satisfactory Pain: Controlled Complications: Absent Post Op Complications Complications None Follow Up Care/Instructions Patient Instructions None needed. Anesthesia/Patient Condition Patient Condition Patient is doing well, no complaints, stable vital signs, no apparent adverse anesthesia problems. No complications reported per nursing. EARNEST VELA CRNA Sep 22, 2018 07:47
--- NOTE | 2018-09-22 08:43 | NUR ---
DISCHARGE PAPERS PROVIDED AND REVIEWED WITH PT. PT'S MOTHER AND DAUGHTER AT THE BEDSIDE. PT VERBALIZES UNDERSTANDING AND DENIES ANY QUESTIONS AT THIS TIME. PAPER SIGNED. FOLLOW UP APPOINTMENT CARDS, RX'S AND PICTURES ALSO PROVIDED AND PLACED INTO DISCHARGE FOLDER.
--- NOTE | 2018-09-22 08:52 | NUR ---
PT DISCHARGED FROM [facility] TO [facility] IN STABLE CONDITION ACC BY FAMILY AND THIS RN. BELONGINGS IN HAND.
== END 2018-09-22 08:52 | disposition home or self-care (01) ==
LOC: SDC 06:10 → WS 10:30 → SDC 09-22 08:52
PROVIDERS: ATTEND Obstetrics & Gynecology
DX: N93.9 Abnormal uterine and vaginal bleeding, unspecified (principal); D27.1 Benign neoplasm of left ovary; N83.8 Other noninflammatory disorders of ovary, fallopian tube and broad ligament; E66.01 Morbid (severe) obesity due to excess calories; Z68.41 Body mass index [BMI] 40.0-44.9, adult
CPT/HCPCS: 84703; 86850; 86900; 86901; 88307; 94664